=== PATIENT | male | born 1970 | race Two or more races ===

== ENCOUNTER 2024-08-09 19:50 | Emergency (ER) | payer MEDICAID ==
[~2024-08-09] VITALS: Ht 172.7 cm; Wt 95.7 kg
--- NOTE | 2024-08-09 20:32 | DVH ---
CHEST RADIOGRAPH Indication: sob Technique: Single frontal view of the chest was obtained COMPARISON: None FINDINGS: Lines and Tubes: None Lungs: Clear Pleura: No effusion. No pneumothorax. Cardiomediastinal contours: Unremarkable Bones: Unremarkable IMPRESSION: No abnormality.
[2024-08-09 21:07] LABS: Albumin 4.5 g/dL (3.2-4.8); Anion Gap 5 (5-15); BUN/Creatinine Ratio 8.7 (10.0-20.0); Bilirubin, Total 0.6 mg/dL (0.2-1.0); Calcium 9.5 mg/dL (8.7-10.4); Carbon Dioxide 26 mmol/L (20-31); Chloride 103 mmol/L (98-107); Potassium 4.1 mmol/L (3.5-5.1); Total Protein 7.2 g/dL (5.7-8.2)
[2024-08-09 21:10] LABS: Alanine Aminotransferase 80 U/L (7-40); Alkaline Phosphatase 146 U/L (46-116); Aspartate Aminotransferase 72 U/L (13-40); Blood Urea Nitrogen 9 mg/dL (9-23); Glucose 112 mg/dL (74-106); Sodium 134 mmol/L (136-145)
[2024-08-09 23:06] LABS: Rapid Influenza B Negative (Negative)
[2024-08-09 23:07] LABS: COVID19 ANTIGEN SOFIA FIA NEGATIVE (NEGATIVE)
[2024-08-09 23:11] LABS: Rapid Influenza A Positive (Negative)
[2024-08-09] MEDS ORDERED: IBUP-1455 PO (23:25)
[2024-08-09] MEDS ORDERED: TAMIFLU PO (23:25)
--- NOTE | 2024-08-09 23:25 | ED.PDOC ---
History of Present Illness HPI Comments Patient complaining of fever chills body aches x2 days. Nothing makes it better, nothing makes it worse. Patient also noticed swelling in bilateral lower extremities. States last time he saw his primary care doctor was two years ago. No chest pain no shortness a breath. No new foods no new medications. Chief Complaint: Flu like Time Seen by MD: 20:06 Reviewed Notes: Nurses Notes Information Source: Patient Past Medical History PAST MEDICAL HISTORY: Denies Surgical History: Denies all surgeries Constitutional: Fever EENTM: No Symptoms Reported Respiratory: Cough Cardiovascular: Edema Gastrointestinal: No Symptoms Reported Genitourinary: No Symptoms Reported Neurological: No Symptoms Reported Musculoskeletal: No Symptoms Reported Integumentary: No Symptoms Reported Allergic/Immunocompromised: others Hematologic/Lymphatic: No Symptoms Reported Endocrine: No Symptoms Reported Psychiatric: No symptoms Reported All Other Systems: Reviewed and Negative Physical Exam General Appearance: No Apparent Distress, Normal HEENT: Normal ENT Inspection, Pharynx Normal, TMs Normal Neck: Full Range of Motion, Non-Tender, Normal, Normal Inspection Respiratory: Chest Non-Tender, Lungs Clear, No Accessory Muscle Use, No Respiratory Distress, Normal Breath Sounds Cardiovascular: No Edema, No JVD, No Murmur, No Gallop, Normal Peripheral Pulses, Regular Rate/Rhythm Breast Exam: Deferred Gastrointestinal: No Organomegaly, Non Tender, No Pulsatile Mass, Normal Bowel Sounds, Soft Genitalia: Deferred Pelvic: Deferred Rectal: Deferred Extremities: No calf tenderness, Normal capillary refill, Normal inspection, Normal range of motion, Non-tender, No pedal edema Musculoskeletal : Apperance: Normal Neurologic: Alert, coal shooter II-XII nml as Tested, No Motor Deficits, Normal Affect, Normal Mood, No Sensory Deficits Cerebellar Function: Normal Reflexes: Normal Skin: Dry, Normal Color, Warm Lymphatic: No Adenopathy Was a procedure done? Was a procedure done?: No Fever Differential Dx Differential Diagnosis: Dehydration, Drug Toxicity, Influenza, Pneumonia, Pulmonary Embolus, Pyelonephritis, Respiratory Failure, Sepsis X-Ray, Labs, Meds, VS Vital Signs Date Time Temp Pulse Resp B/P (MAP) Pulse Ox O2 Delivery O2 Flow Rate FiO2 08/09/24 20:00 98.9 93 13 132/94 (107) 96 Lab Test 08/09/24 20:30 08/09/24 20:07 Range/Units Sodium Level 134 L 136-145 mmol/L Potassium Level 4.1 3.5-5.1 mmol/L Chloride Level 103 98-107 mmol/L Carbon Dioxide Level 26 20-31 mmol/L Anion Gap 5 5-15 Blood Urea Nitrogen 9 9-23 mg/dL Creatinine 1.04 0.700-1.30 mg/dL Glomerular Filtration Rate Calc 85 >90 mL/min BUN/Creatinine Ratio 8.7 L 10.0-20.0 Serum Glucose 112 H 74-106 mg/dL Calcium Level 9.5 8.7-10.4 mg/dL Total Bilirubin 0.6 0.2-1.0 mg/dL Aspartate Amino Transferase (AST) 72 H 13-40 U/L Alanine Aminotransferase (ALT) 80 H 7-40 U/L Alkaline Phosphatase 146 H 46-116 U/L B-Type Natriuretic Peptide 9.75 0-100 pg/mL Total Protein 7.2 5.7-8.2 g/dL Albumin 4.5 3.2-4.8 g/dL Influenza Type A Antigen Positive Negative Influenza Type B Antigen Negative Negative SARS-CoV-2 Antigen (Rapid) Negative NEGATIVE X-Ray, Labs, Meds, VS Comment Imaging: X-rays and CT scans were reviewed and interpreted by this provider, imaging shows no fractures and no pathological disease. Pending radiology review. Laboratory: Labs reviewed and interpreted by this provider. Positive influenza Patient has prior medical visits reviewed. Med reconciliation performed Vital signs reviewed Images Reviewed?: Images reviewed and evaluated by me Time of 1ST Reevaluation: 23:39 Reevaluation 1ST: Improved Patient Education/Counseling: Diagnosis, Treatment, Need For Follow Up (Patient advised to follow-up in the emergency room in the next 24 to 48 hours if symptoms do not improve. Advised follow-up with PCP in the next 3 to 5 days. Patient verbalized understanding. ) Family Education/Counseling: Diagnosis Departure 1 Departure Time of Disposition: 23:19 Impression: Primary Impression: Influenza Disposition: HOME / SELF CARE / HOMELESS Condition: Fair e-Prescriptions Ibuprofen Micronized (Ibuprofen) 800 Mg Tab 800 MG PO TID PRN, #30 TAB Prov: NAHUM CARTER 08/09/24 Oseltamivir Phosphate (Tamiflu) 75 Mg Cap 75 MG PO BID for 5 Days, #10 CAP Prov: NAHUM CARTER 08/09/24 Discharged With: Self Critical Care Note Critical Care Time?: No Stability Stability form required: No Heart Score Heart Score: Heart Score Response (Comments) Value History N/A 0 EKG N/A 0 Age N/A 0 Risk Factors N/A 0 Troponin N/A 0 Total 0 NAHUM CARTER Aug 09, 2024 23:25
[2024-08-10 00:23] VITALS: BP 140/92; PULSE 86; RESP 19; TEMP 97.8; O2SAT 97
== END 2024-08-10 00:25 | disposition home or self-care (01) ==
LOC: ER 19:50
DX: J11.1 Influenza due to unidentified influenza virus with other respiratory manifestations (principal); Z20.822 Contact with and (suspected) exposure to COVID-19
CPT/HCPCS: 36415; 71045; 80053; 83880; 87426; 87804

== ENCOUNTER 2024-12-19 22:57 | Emergency (ER) | payer MEDICAID, OTHER ==
[~2024-12-19] VITALS: Ht 175.3 cm; Wt 93.3 kg
[2024-12-19 22:57] VITALS: BP 150/100; PULSE 91; RESP 20; TEMP 97.8; O2SAT 99
[~2024-12-19 22:57] MED LIST: IBUP-1455 PO; TAMIFLU PO
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
[2024-12-20] MEDS: HYDROcodone-ACET 10/325MG TAB PO ONE (01:20)
[2024-12-20] MEDS: KETOROLAC TROMETH 60MG/2ML VIAL IM ONE (01:20)
== END 2024-12-20 01:34 | disposition home or self-care (01) ==
LOC: ER 22:57
DX: S39.011A Strain of muscle, fascia and tendon of abdomen, initial encounter (principal); S50.811A Abrasion of right forearm, initial encounter; Z79.899 Other long term (current) drug therapy; V89.2XXA Person injured in unspecified motor-vehicle accident, traffic, initial encounter; W22.19XA Striking against or struck by other automobile airbag, initial encounter; Y93.89 Activity, other specified; Y92.488 Other paved roadways as the place of occurrence of the external cause; Y99.8 Other external cause status; N43.3 Hydrocele, unspecified
CPT/HCPCS: 74176; 96372; 99285; J1885